=== PATIENT | female | born 1985 | race Caucasian/White ===

== ENCOUNTER 2025-05-06 17:16 | Outpatient (CLI) | payer BC, SELFPAY ==
--- NOTE | 2025-05-06 17:41 | CRLHL7_ITS ---
For Patients: As a result of the Cures Act, medical imaging exams and procedure reports are released immediately into your electronic medical record. You may view this report before your referring provider. If you have questions, please contact your health care provider. LMP: 03/11/2025. JULIA by LMP: 12/16/2025. GA: 8w, 0d. INDICATION: Dating and viability. CRL: 1.8 cm 8 weeks 2 days. JULIA 12/14/2025. FHR: 165 bpm. GESTATIONAL SAC: 3.0 cm, appears within normal limits. YOLK SAC: 3.0 mm, appears within normal limits. RIGHT OVARY: 3.5 x 1.5 x 2.6 cm, CL. LEFT OVARY: 2.1 x 0.9 x 2.1 cm. IMPRESSION: Single living intrauterine measures 8 weeks 2 days with sonographic due date 12/14/2025. Lance Pineda M.D. Diagnostic Radiologist [email or web address] bM/Dictated by: Lance Pineda MD @ 05/06/2025 8:45:00 PM (Electronically Signed)
== END 2025-05-06 17:17 | disposition home or self-care (01) ==
LOC: US 17:16
PROVIDERS: Visit Provider Advanced Practice Midwife
DX: O09.521 Supervision of elderly multigravida, first trimester (principal); Z3A.08 8 weeks gestation of pregnancy
CPT/HCPCS: 76801; 76817; 83021; 86592; 86703; 86704; 86706; 86762; 86787; 86803; 86850; 86900; 86901; 87086; 87340; 87491; 87591

== ENCOUNTER 2025-05-06 18:36 | Outpatient (CLI) | payer BC, SELFPAY ==
[2025-05-06 22:18] LABS: Chlamydia DNA Amplified* NOT DETECTED (No Detected); GC DNA Amplified* NOT DETECTED (No Detected)
== END 2025-05-06 18:37 | disposition home or self-care (01) ==
PROVIDERS: Visit Provider Physician Assistant
DX: O09.521 Supervision of elderly multigravida, first trimester (principal); Z3A.08 8 weeks gestation of pregnancy
CPT/HCPCS: 83020; 83021; 85660; 86592; 86703; 86704; 86706; 86762; 86787; 86803; 86850; 86900; 86901; 87086; 87340; 87491; 87591